=== PATIENT | male | born 1950 | race Hispanic/Latino ===

== ENCOUNTER 2023-10-26 05:34 | Day surgery (SDC) | payer OTHER ==
[~2023-10-26] VITALS: Ht 167.6 cm; Wt 71.7 kg
[2023-10-26] VITALS (14 sets, daily range): BP systolic 85–179; BP diastolic 44–76; PULSE 54–60; RESP 14–18
[~2023-10-26 05:34] MED LIST: ATOR10TA69 PO; EMPA25TA PO; GLIP10TA19 PO; LISI5TAB21 PO
[2023-10-26] MEDS: 0.9%NACL 1000ML 1,000 ML IV ONE (06:33)
[2023-10-26] MEDS ORDERED: PROPOFOL 10 MG/ML 20ML VIAL IV ONE (07:09)
== END 2023-10-26 08:50 | disposition home or self-care (01) ==
LOC: ENDO 05:34 → DAH 05:34 → ENDO 08:50 → EDSTATUS 11:00
PROVIDERS: ATTEND Internal Medicine Gastroenterology
DX: Z12.11 Encounter for screening for malignant neoplasm of colon (principal); I10 Essential (primary) hypertension; E11.9 Type 2 diabetes mellitus without complications; Z85.038 Personal history of other malignant neoplasm of large intestine; Z79.84 Long term (current) use of oral hypoglycemic drugs; Z79.899 Other long term (current) drug therapy; Z82.3 Family history of stroke; Z82.49 Family history of ischemic heart disease and other diseases of the circulatory system; Z80.9 Family history of malignant neoplasm, unspecified; Z98.49 Cataract extraction status, unspecified eye; Z98.890 Other specified postprocedural states
CPT/HCPCS: 82948 ×2; 44388; J7030 ×2; J2704; A4215; A4223; A7002; A4222; A4221; A4663; A4606; J3490